=== PATIENT | male | born 1980 | race Caucasian/White ===

== ENCOUNTER 2017-10-04 13:14 | Emergency (ER) | payer BC, OTHER ==
[2017-10-04] MEDS ORDERED: CLINDAMYCIN 600 MG/D5W RTU 600 MG/50 ML RTUPB IV ONE (14:44)
[2017-10-04] MEDS ORDERED: DEXAMETHASONE SOD PHOS INJ 10 MG/1 ML VIAL IV ONE (14:44)
[2017-10-04] MEDS ORDERED: NORMAL SALINE 1000 ML 1,000 ML IV ONE (14:45)
[2017-10-04] MEDS ORDERED: KETOROLAC TROMETHAMINE INJ/PF 30 MG/1 ML SDV IV ONE (15:57)
[2017-10-04 16:00] LABS: HEMATOCRIT 42.8 % (37.9-51.0); HEMOGLOBIN 14.5 g/dL (13.5-17.0); HGB HCT DIFFERENCE 0.7; MEAN CORPUSCULAR HEMOGLOBIN 30.3 pg (27.0-33.4); MEAN CORPUSCULAR HGB CONC 33.8 g/dL (32.0-36.0); MEAN CORPUSCULAR VOLUME 90 fl (80-97); RED BLOOD COUNT 4.76 10^6/uL (4.35-5.55); RED CELL DISTRIBUTION WIDTH 13.2 % (11.5-14.0); WHITE BLOOD COUNT 13.6 10^3/uL (4.0-10.5)
--- NOTE | 2017-10-04 16:15 | RADIOLOGY REPORT (SQ) ---
EXAM DESCRIPTION: CT SOFT TISSUE NECK WITH COMPLETED DATE/TIME: 10/04/2017 3:44 pm REASON FOR STUDY: Fever swelling to the throat sore throat COMPARISON: None. TECHNIQUE: Post IV contrasted scanning from skull base through lung apices with review of bone, soft tissue and lung windows. Reconstructed coronal and sagittal MPR images reviewed. All images stored on PACS. All CT scanners at this facility use dose modulation, iterative reconstruction, and/or weight based d osing when appropriate to reduce radiation dose to as low as reasonably achievable (ALARA). [facility]: Dose Right [facility]: CareDose [facility]: Dose Right [facility]: Teradose 4D [facility]: Hard 8 Games CONTRAST TYPE AND DOSE: contrast/concentration: Isovue 370.00 mg/ml; Total Contrast Delivered: 75.0 ml; Total Saline Delivered: 55.0 ml RENAL FUNCTION: None required. The patient is less than 50 years old. RADIATION DOSE: CT Rad equipment meets quality standard of care and radiation dose reduction techniq ues were employed. CTDIvol: 14.2 mGy. DLP: 495 mGy-cm. . LIMITATIONS: Study is limited due to artifact related to dental hardware. FINDINGS: SKULL BASE: Intact. MAJOR SALIVARY GLANDS: No solid or cystic masses. No inflammatory changes. LYMPHADENOPATHY: No adenopathy. MUCOSAL MASSES OR ASYMMETRY: There is soft tissue asymmetry on the left extending inferiorly from the tonsillar region and oropharynx inferiorly into the supraglottic region with heterogeneous enhanceme nt and compression of the perform sinus on the left. This presumably is related to an infectious or inflammatory process. The possibility of an underlying mass cannot be completely excluded. LARYNX/CORDS: There does not appear to be involvement of the vocal cords. VASCULAR STRUCTURES: The major vessels are patent. LUNG APICES: Clear. BONES: Intact. THYROID: Normal size. No masses. PARANASAL SINUSES: Clear. OTHER: No other significant finding. IMPRESSION: Soft tissue asymmetry on the left as noted above extending inferiorly from the tonsillar region and oropharynx inferiorly into the supraglottic region with heterogeneous enhancement magui tabatha of the perform sinus on the left. This presumably is related to an infectious or inflammatory p rocess. The possibility of an underlying mass cannot be completely excluded. Clinical correlation i s recommended. Other findings as noted above TECHNICAL DOCUMENTATION: JOB ID: [id number] Quality ID # [id number]: Final reports with documentation of one or more dose reduction techniques (e.g., Au tomated exposure control, adjustment of the mA and/or kV according to patient size, use of iterative reconstruction technique) 2010 [employer]- All Rights Reserved
[2017-10-04 16:23] LABS: ANION GAP 14 (5-19); BLOOD UREA NITROGEN 11 mg/dL (7-20); CALCIUM 9.6 mg/dL (8.4-10.2); CARBON DIOXIDE 28 mmol/L (22-30); CHLORIDE 97 mmol/L (98-107); CREATININE RESULT 1.12 mg/dL (0.52-1.25); GLUCOSE 108 mg/dL (75-110); POTASSIUM 3.4 mmol/L (3.6-5.0); SODIUM 138.9 mmol/L (137-145)
[2017-10-04 16:37] LABS: BASOPHILS % (MANUAL) 0 % (0-2); EOSINOPHILS % (MANUAL) 0 % (0-6); LYMPHOCYTES % (MANUAL) 3 % (13-45); TOTAL CELLS COUNTED 100
[2017-10-04 16:39] LABS: SCHISTOCYTES SLIGHT
--- NOTE | 2017-10-04 17:21 | ER Document Report ---
ED General - General Chief Complaint: Fever Stated Complaint: POSSIBLE BUG BITE Time Seen by Provider: 10/04/17 14:30 Mode of Arrival: Ambulatory Information source: Patient Notes: 37-year-old male presents to ED for complaint of fever painful ulcer under the chin sore throat runny nose congestion that started yesterday he said that he did not notice the pain under his chin until this morning. States he went to her primary care doctor and they sent him to the emergency room. TRAVEL OUTSIDE OF THE [place] IN LAST 30 DAYS: No - HPI Onset: Yesterday Onset/Duration: Gradual Quality of pain: Pressure Severity: Severe Pain Level: 2 Associated symptoms: Body/muscle aches, Chills, Nonproductive cough, Fever, Rhinnorhea, Sinus pain/drainage, Sore throat, Other - Small sore area under the chin with swollen firm under the neck. 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 Family History: None Patient has suicidal ideation: No Patient has homicidal ideation: No - Past Medical History Cardiac Medical History: Reports: None Pulmonary Medical History: Reports: None EENT Medical History: Reports: None Neurological Medical History: Reports: None Endocrine Medical History: Reports: None Renal/ Medical History: Reports: None Malignancy Medical History: Reports None GI Medical History: Reports: None Skin Medical History: Reports Other - Redness swelling tenderness under the chin Psychiatric Medical History: Reports: None - Redness swelling tenderness to neck Traumatic Medical History: Reports: None Infectious Medical History: Reports: None - Immunizations Immunizations up to date: Yes Review of Systems - Review of Systems Constitutional: Fever, Recent illness EENT: Other - Red painful swollen area under the chin with a small sore with possible eschar tissue Cardiovascular: No symptoms reported Respiratory: No symptoms reported Gastrointestinal: No symptoms reported Genitourinary: No symptoms reported Male Genitourinary: No symptoms reported Musculoskeletal: No symptoms reported Skin: No symptoms reported Hematologic/Lymphatic: No symptoms reported Neurological/Psychological: No symptoms reported -: Yes All other systems reviewed and negative Physical Exam - Vital signs Vitals: Temp Pulse Resp BP Pulse Ox 101.7 F H 124 H 14 115/82 98 10/04/17 13:24 10/04/17 13:24 10/04/17 13:24 10/04/17 13:24 10/04/17 13:24 Interpretation: Normal - General General appearance: Appears well, Alert - HEENT Head: Normocephalic, Atraumatic Eyes: Normal Pupils: PERRL Ears: Normal External canal: Normal Tympanic membrane: Normal Sinus: Normal Nasal: Purulent discharge Mouth/Lips: Normal Mucous membranes: Normal Pharynx: Erythema, Post nasal drainage, Tonsillar hypertrophy Neck: Anterior cervical chain, Other - Swollen red area under the chin with a small ulcerated area to the left side under the chin. - Respiratory Respiratory status: No respiratory distress Chest status: Nontender Breath sounds: Normal Chest palpation: Normal - Cardiovascular Rhythm: Regular Heart sounds: Normal auscultation Murmur: No - Abdominal Inspection: Normal Distension: No distension Bowel sounds: Normal Tenderness: Nontender Organomegaly: No organomegaly - Back Back: Normal, Nontender - Extremities General upper extremity: Normal inspection, Nontender, Normal color, Normal ROM , Normal temperature General lower extremity: Normal inspection, Nontender, Normal color, Normal ROM , Normal temperature, Normal weight bearing. No: Derian's sign - Neurological Neuro grossly intact: Yes Cognition: Normal Orientation: AAOx4 Platter Coma Scale Eye Opening: Spontaneous Platter Coma Scale Verbal: Oriented Platter Coma Scale Motor: Obeys Commands Platter Coma Scale Total: 15 Speech: Normal Motor strength normal: LUE, RUE, LLE, RLE Sensory: Normal - Psychological Associated symptoms: Normal affect, Normal mood - Skin Skin Temperature: Warm Skin Moisture: Dry Skin Color: Normal Course - Re-evaluation Re-evalutation: 10/04/17 17:[address] Juan for the CT reading and lab results. He recommended that the roof be removed from the eschar looking scab. Roof was removed no drainage underneath. Patient was treated with clindamycin Decadron and Toradol in the emergency room as well as IV fluids and discharged home on clindamycin. Patient to follow-up with his primary doctor. - Vital Signs Vital signs: Temp Pulse Resp BP Pulse Ox 98.3 F 98 16 119/61 96 10/04/17 17:24 10/04/17 17:24 10/04/17 17:24 10/04/17 17:24 10/04/17 17:24 - Laboratory Result Diagrams: 10/04/17 15:10 10/04/17 15:10 Laboratory results interpreted by me: 10/04/17 10/04/17 15:10 15:10 WBC 13.6 H Seg Neuts % (Manual) 93 H Lymphocytes % (Manual) 3 L Abs Neuts (Manual) 12.6 H Abs Lymphs (Manual) 0.4 L Potassium 3.4 L Chloride 97 L - Diagnostic Test Radiology reviewed: Image reviewed, Reports reviewed Procedures - Incision and Drainage Left under the chin Time completed: 17:40 Type: Simple Anesthetic type: 1% Lidocaine mL's of anesthetic: 4 Blade size: 11, Other I&D procedure: Shurclens applied, Sterile dressing applied Incision Method: Incision made with needle - And scissors Amount/type of drainage: Very minimal drainage after the eschar looking area was removed. Notes: 10/04/17 17:41 Area cleaned well with Shur-Clens saline bacitracin then saline to be sure that the area was well cleaned. Bacitracin applied to the area with sterile dressing patient be discharged home with clindamycin and to follow-up with his primary doctor Discharge - Discharge Clinical Impression: Cellulitis neck/under chin left, Sore throat Upper respiratory infection Qualifiers: URI type: unspecified URI Qualified Code(s): J06.9 - Acute upper respiratory infection, unspecified Instructions: Family Physicians / Practices Additional Instructions: CELLULITIS: You have an infection of your skin and underlying soft tissues called cellulitis. This is due to bacteria, which can enter through any break in the skin, or even through an irritated hair follicle. Untreated, cellulitis will usually worsen. Antibiotics are required. Usually, warm packs or warm soaks, and elevation of the infected area are recommended. You should start getting better within 24 to 36 hours. Most infections respond quickly to the right medication. Follow-up care is important, however, to check for abscess (boil) formation, unsuspected foreign body, or resistant infection. If you develop fever, chills, or if the area of infection is becoming rapidly more swollen or painful, call the doctor at once. MRSA CELLULITIS: You have an infection of your skin and underlying soft tissues called cellulitis. This is due to bacteria, which can enter through any break in the skin, or even through an irritated hair follicle. Untreated, cellulitis will usually worsen and may form an abscess which requires draining. Although many bacterial organisms can cause cellulitis and abscess formations, the most likely bacteria is Methicillin-Resistant Staph Aureus, or MRSA for short. Antibiotics are required. Usually, warm packs or warm soaks, and elevation of the infected area are recommended. You should start getting better within 24 to 36 hours. Most infections respond quickly to the right medication. Follow-up care is important, however, to check for abscess (boil) formation, unsuspected foreign body, or resistant infection. If you develop fever, chills, or if the area of infection is becoming rapidly more swollen or painful, call the doctor at once. SOAP CLEANSING: Gently wash the wound daily using a mild soap (like Ivory, Phisoderm, Neutrogena). Use warm water, rubbing gently until all debris, ooze, and crusting have been washed from the wound. Allow to dry briefly (about 10 minutes) after cleaning. Repeat this cleansing at least three times a day for the first two days and then once or twice a day. ANTIBIOTIC OINTMENT PROTECTION: Your wounds are such that dressing them is not practical or optional. After cleansing, you should apply a thin coating of antibiotic ointment ( Bacitracin, not Neosporin) to the wounds at least three times daily. This lessens infection risk, and may decrease the amount of scarring. Use a q-tip or dull butter knife, not your finger, to apply this ointment. Any debris or ooze which builds up in the ointment should be gently rubbed off with a sterile gauze pad. Harder crusting may need to be gently scrubbed off with a clean wash cloth with soap and warm water, perhaps applying a warm, wet wash cloth to the wound for ten minutes first. Development of redness, severe itching, or blistering may mean allergy to the ointment. See the doctor. CLINDAMYCIN: You have been given a prescription for the antibiotic clindamycin. It is often prescribed for infections in the mouth, such as dental infections or abscesses, and for skin infections due to MRSA. It's important that you take all the medication, unless instructed otherwise by your physician. Failure to complete the entire course can result in relapse of your condition. Common side effects of antibiotics include nausea, intestinal cramping, or diarrhea. Women may develop vaginal yeast infections, and babies can get yeast (thrush) in the mouth following the use of antibiotics. Contact your physician if you develop significant side effects from this medication. Allergy to this antibiotic can result in hives, wheezing, faintness, or itching. If symptoms of allergy occur, stop the medication and call the doctor. Acetaminophen Acetaminophen may be taken for pain relief or fever control. It's much safer than aspirin, offering a wider range of "safe" dosages. It is safe during . Some brand names are Tylenol, Panadol, Datril, Anacin 3, Tempra, and Liquiprin. Acetaminophen can be repeated every four hours. The following are maximum recommended dosages: WEIGHT Dose Drops Elixir Chewable( 80mg) (LBS.) drprs=droppers tsp=teaspoon 6 40 mg .4 ml (1/2) 6-11 80 mg .8 ml (full) 1/2 tsp 1 tab 12-16 120 mg 1 1/2 drprs 3/4 tsp 1 1/2 tabs 17-23 160 mg 2 drprs 1 tsp 2 tabs 24-30 240 mg 3 drprs 1 1/2 tsp 3 tabs 30-35 320 mg 2 tsp 4 tabs 36-41 360 mg 2 1/4 tsp 4 1 /2 tabs 42-47 400 mg 2 1/2 tsp 5 tabs 48-53 480 mg 3 tsp 6 tabs 54-59 520 mg 3 1/4 tsp 6 1 /2 tabs 60-64 560 mg 3 1/2 tsp 7 tabs 65-70 600 mg 3 3/4 tsp 7 1 /2 tabs 71-76 640 mg 4 tsp 8 tabs 77-82 720 mg 4 1/2 tsp 9 tabs 83-88 800 mg 5 tsp 10 tabs >89 pounds or adults 650 mg to 900 mg Acetaminophen can be repeated every four hours. Maximum daily dose not to exceed 4000 mg. These maximum recommended dosages are slightly higher than the dosages written on the product container, but these dosages are very safe and well below the toxic dosage for acetaminophen. Epsom Salt Soaks Soak the wound area in a container of warm epsom salt water. If you can't get the wound area into a bucket or siegel, use a folded towel soaked in the epsom salt solution and apply to the area. Use clean hot tap water (about the temperature of a very warm bath), mixing in about one (1) teaspoon for every pint of water. Two gallon --> 16 teaspoons Epsom Salts One gallon --> 8 teaspoons Epsom Salts Two quarts --> 4 teaspoons Epsom Salts One quart --> 2 teaspoons Epsom Salts Soak the wound for about 20 minutes while gently moving it around in the water. Repeat this four (4) times a day. FOLLOW-UP CARE: If you have been referred to a physician for follow-up care, call the physician s office for an appointment as you were instructed or within the next two days. If you experience worsening or a significant change in your symptoms, notify the physician immediately or return to the Emergency Department at any time for re-evaluation. Prescriptions: Clindamycin HCl 300 mg PO Q6 #40 capsule Forms: Return to Work
[2017-10-04 17:24] VITALS: BP 119/61
== END 2017-10-04 18:17 | disposition home or self-care (01) ==
LOC: ER 13:14
PROC: 0H94XZZ Drainage of Neck Skin, External Approach (ICD-10-PCS; principal; 2017-10-04)
DX: L03.221 Cellulitis of neck (principal); J02.9 Acute pharyngitis, unspecified; J06.9 Acute upper respiratory infection, unspecified; R50.9 Fever, unspecified; M79.1 Myalgia
CPT/HCPCS: 99284; 96375; 96365; 36415; 87040; 87070; 87880; 85025; 87077; 80048; 83605; 70491; 10060; J1885; J7030; J1100

== ENCOUNTER 2019-10-28 10:36 | Inpatient (IN) | payer SELFPAY ==
--- NOTE | 2019-10-28 10:50 | ER Document Report ---
ED Medical Screen (RME) - General Chief Complaint: Abscess Stated Complaint: ABSCESS/BACK OF NECK Time Seen by Provider: 10/28/19 10:48 TRAVEL OUTSIDE OF THE [place] IN LAST 30 DAYS: No - HPI Notes: 10/28/19 10:48 Patient is a 39-year-old male with no significant past medical history who presents complaining of a large abscess to the back of his head for the past several days. No history of MRSA. No fever. I have treated and performed a rapid initial assessment of this patient. A comprehensive ED assessment and evaluation of the patient, analysis of test results and completion of medical decision making process will be conducted by additional ED providers. PHYSICAL EXAMINATION: GENERAL: Well-appearing, well-nourished and in no acute distress. A&Ox4. Answers questions appropriately. Skin/head: There is a large approximately 9 cm x 6 cm indurated area with scant purulence noted to the back of the scalp. There is surrounding erythema associated. - Related Data Allergies/Adverse Reactions: No Known Allergies Allergy (Unverified 10/04/17 13:20) Past Medical History Renal/ Medical History: Denies: Hx Peritoneal Dialysis - Immunizations Immunizations up to date: Yes Physical Exam - Vital signs Vitals: Temp Pulse Resp BP Pulse Ox 98.6 F 108 H 16 155/84 H 98 10/28/19 10:45 10/28/19 10:45 10/28/19 10:45 10/28/19 10:45 10/28/19 10:45 Course - Vital Signs Vital signs: Temp Pulse Resp BP Pulse Ox 98.6 F 108 H 16 155/84 H 98 10/28/19 10:45 10/28/19 10:45 10/28/19 10:45 10/28/19 10:45 10/28/19 10:45
[2019-10-28] MEDS ORDERED: KETOROLAC TROMETHAMINE INJ/PF 30 MG/1 ML SDV IV ONE (11:38)
[2019-10-28] MEDS ORDERED: CLINDAMYCIN 600 MG/D5W RTU 600 MG/50 ML RTUPB IV ONE (11:39)
[2019-10-28 12:21] LABS: ABSOLUTE BASOPHILS # (AUTO) 0.1 10^3/uL (0.0-0.2); ABSOLUTE EOSINOPHILS # (AUTO) 0.1 10^3/uL (0.0-0.6); ABSOLUTE LYMPHOCYTES (AUTO) 1.6 10^3/uL (0.5-4.7); ABSOLUTE MONOCYTES (AUTO) 1.1 10^3/uL (0.1-1.4); ABSOLUTE NEUT (AUTO) 11.8 10^3/uL (1.7-8.2); BASOPHILS % (AUTO) 0.6 % (0-2); EOSINOPHILS % (AUTO) 0.5 % (0-6); HEMATOCRIT 42.9 % (37.9-51.0); HEMOGLOBIN 14.6 g/dL (13.5-17.0); LYMPHOCYTES % (AUTO) 10.8 % (13-45); MEAN CORPUSCULAR VOLUME 91 fl (80-97); MONOCYTES % (AUTO) 7.8 % (3-13); PLATELET COUNT 273 10^3/uL (150-450); RED BLOOD COUNT 4.71 10^6/uL (4.35-5.55); RED CELL DISTRIBUTION WIDTH 13.6 % (11.5-14.0); SEGMENTED NEUTROPHILS % (AUTO) 80.3 % (42-78); TOTAL CELLS COUNTED % (AUTO) 100 %; WHITE BLOOD COUNT 14.7 10^3/uL (4.0-10.5)
[2019-10-28 12:41] LABS: ALKALINE PHOSPHATASE 94 U/L (38-126); ANION GAP 11 (5-19); ASPARTATE AMINO TRANSFERASE 31 U/L (17-59); BILIRUBIN,DIRECT 0.2 mg/dL (0.0-0.4); BILIRUBIN,TOTAL 0.7 mg/dL (0.2-1.3); BLOOD UREA NITROGEN 8 mg/dL (7-20); CALCIUM 9.4 mg/dL (8.4-10.2); CARBON DIOXIDE 28 mmol/L (22-30); CHLORIDE 101 mmol/L (98-107); GLUCOSE 89 mg/dL (75-110); POTASSIUM 4.1 mmol/L (3.6-5.0); TOTAL PROTEIN 7.5 g/dL (6.3-8.2)
--- NOTE | 2019-10-28 13:04 | ER Document Report ---
ED General - General Chief Complaint: Abscess Stated Complaint: ABSCESS/BACK OF NECK Time Seen by Provider: 10/28/19 10:48 TRAVEL OUTSIDE OF THE [place] IN LAST 30 DAYS: No - HPI Notes: Patient is a 39-year-old male who presents emergency department for evaluation of redness and drainage from the back of his neck. He states that he had a haircut about a week ago. He noticed increased pain and redness to the area. He then wore a collar and short 1 day and developed drainage. He states his been trying to attend to the wound with tea tree oil, rubbing alcohol, hydrogen peroxide. He denies any fevers or chills. No nausea or vomiting. - Related Data Allergies/Adverse Reactions: No Known Allergies Allergy (Unverified 10/04/17 13:20) Home Medications: None Past Medical History - General Information source: Patient - Social History Smoking Status: Never Smoker Frequency of alcohol use: None Drug Abuse: None Family History: None Patient has suicidal ideation: No Patient has homicidal ideation: No - Medical History Medical History: Negative Renal/ Medical History: Denies: Hx Peritoneal Dialysis - Immunizations Immunizations up to date: Yes Review of Systems - Review of Systems Constitutional: No symptoms reported EENT: No symptoms reported Cardiovascular: No symptoms reported Respiratory: No symptoms reported Gastrointestinal: No symptoms reported Genitourinary: No symptoms reported Musculoskeletal: No symptoms reported Skin: See HPI Neurological/Psychological: No symptoms reported Physical Exam - Vital signs Vitals: Temp Pulse Resp BP Pulse Ox 98.6 F 108 H 16 155/84 H 98 10/28/19 10:45 10/28/19 10:45 10/28/19 10:45 10/28/19 10:45 10/28/19 10:45 - Notes Notes: Vital signs reviewed, please refer to chart. Head is normocephalic, atraumatic. Pupils equal round, reactive to light. Heart is regular rate and rhythm. Lungs are clear to auscultation bilaterally. Abdomen is soft, nontender, normoactive bowel sounds throughout. Extremities without cyanosis, clubbing. Posterior calves are nontender. Peripheral pulses are equal. patient is awake, alert, neurological exam is nonfocal. Examination of the posterior neck is a 9 x 6 cm significant induration and erythema. Centrally he has had some skin breakdown with some purulence noted. The entire area is raised. No nuchal rigidity. Patient is awake, alert, oriented x3. Cranial nerves II - XII are grossly intact without focal neurological deficits. Strength is plus 5 out of 5 bilateral upper and lower extremities. Sensation is intact. Reflexes symmetrical. Intact [id number], rapid alternating movements, [id number]. Course - Re-evaluation Re-evalutation: 10/28/19 13:04 Patient presents emergency department for evaluation. He had laboratory investigations obtained, was given IV clindamycin. Cultures were obtained. He does have a 14,000 white count. Given the location and the size of this area, I will consult surgery. Awaiting their input at this time. 10/28/19 14:56 Dr. Castro came down and evaluated the patient. He agrees that based on the location and the depth of the wound that surgical exploration and debridement is appropriate. The patient will be taken to the OR. - Vital Signs Vital signs: Temp Pulse Resp BP Pulse Ox 98.3 F 102 H 18 123/73 100 10/28/19 14:43 10/28/19 14:43 10/28/19 14:43 10/28/19 14:43 10/28/19 14:43 - Laboratory Result Diagrams: 10/28/19 12:00 10/28/19 12:00 Laboratory results interpreted by me: 10/28/19 12:00 WBC 14.7 H Lymph % (Auto) 10.8 L Absolute Neuts (auto) 11.8 H Seg Neutrophils % 80.3 H Discharge - Discharge Clinical Impression: Neck abscess Condition: Stable Disposition: ADMITTED INPATIENT Admitting Provider: Surgicalist - Dr. Castro Unit Admitted: OR
[2019-10-28] MEDS ORDERED: MIDAZOLAM 2 MG/2 ML INJ ONE (15:31)
[2019-10-28] MEDS ORDERED: FENTANYL CITRATE INJ/PF 100 MCG/2 ML AMPUL ONE (15:31)
[2019-10-28] MEDS ORDERED: PROPOFOL INJ 200 MG/20 ML VIAL IV ONE (15:32)
[2019-10-28] MEDS ORDERED: ONDANSETRON HCL INJ/PF 4 MG/2 ML SDV ONE (15:32)
[2019-10-28] MEDS ORDERED: BUPIVACAINE HCL 0.25 % INJ/PF (2.5 MG/1 ML) 30 ML VIAL ONE (15:33)
[2019-10-28] MEDS ORDERED: LIDOCAINE 1%/EPINEPHRINE INJ 20 ML VIAL ONE (16:05)
[2019-10-28] MEDS ORDERED: PROMETHAZINE HCL INJ 25 MG/1 ML VIAL IV PRN (16:14)
[2019-10-28] MEDS ORDERED: MEPERIDINE HCL/PF INJ 25 MG/1 ML DISP.SYRIN IV PRN (16:14)
[2019-10-28] MEDS ORDERED: FENTANYL CITRATE INJ/PF 100 MCG/2 ML AMPUL IV PRN ×3 (16:14)
[2019-10-28] MEDS ORDERED: DIPHENHYDRAMINE HCL 50 MG/ML VIAL IV PRN (16:14)
[2019-10-28] MEDS ORDERED: MORPHINE SULFATE 10 MG/ML INJ IV PRN (16:14)
[2019-10-28] MEDS ORDERED: ONDANSETRON HCL INJ/PF 4 MG/2 ML SDV IV PRN (16:42)
--- NOTE | 2019-10-28 16:50 | Operative Report ---
Nonrecallable Operative Report DATE OF SURGERY: 10/28/19 PREOPERATIVE DIAGNOSIS: posterior neck abscess POSTOPERATIVE DIAGNOSIS: Posterior neck abscess OPERATION: Incision drainage debridement of posterior neck abscess SURGEON: LAUREN GALINDO ANESTHESIA: LMAC TISSUE REMOVED OR ALTERED: Skin posterior neck COMPLICATIONS: None ESTIMATED BLOOD LOSS: 50 cc INTRAOPERATIVE FINDINGS: See dictation PROCEDURE: Patient was brought to the operating awake alert stable condition placed in the operative gurney placed in a left lateral decubitus position he was given IV sedation per anesthesia. The posterior neck was prepped and draped. The patient had a large posterior neck abscess in the nape of the neck that was approximately 7 cm long by 4 cm wide after appropriate timeout site verification the procedure commenceA elliptical incision was planned around the abscess first the skin was anesthetized with 1% lidocaine with epinephrine and then using a 15 blade a elliptical incision was made around the abscess through this scalp skin down to the subcutaneous tissue there was a large necrotic area of fatty tissue and subcutaneous tissue underneath the skin was excised down to the muscle of the splenius capitis with the Bovie cautery. A segment of skin approximately 7 cm long by 4 cm wide was excised. I excised the necrotic subcutaneous tissue back to normal bleeding tissue. The wound was then copiously irrigated normal saline and packed with a Betadine soaked sponge which completed the procedure estimated blood loss was 50 cc sponge and needle counts were correct x2 the patient was then transferred recovery in stable condition
[2019-10-28] MEDS ORDERED: VANCOMYCIN HCL 0 MG in DEXTROSE 5%-WATER 250 ML IV NR (17:00)
[2019-10-28] MEDS ORDERED: INFLUENZA QUAD (6MOS+) 2019-20 VAC 0.5 ML SYR IM ONE (17:15)
[2019-10-28] MEDS ORDERED: VANCOMYCIN HCL INJ 1000 MG VIAL IV PRN (17:22)
[2019-10-28] MEDS: POTASSI CL 20 MEQ/D5-1/2NS 1L 1,000 ML IV PRN (17:45)
[2019-10-28] MEDS ORDERED: VANCOMYCIN HCL INJ 1000 MG VIAL ONE (17:56)
[2019-10-28] MEDS: VANCOMYCIN HCL 1,500 MG in DEXTROSE 5%-WATER 250 ML IV SCH (18:26)
[2019-10-28] MEDS: FAMOTIDINE INJ/PF 20 MG/2 ML SDV IV SCH (22:39)
[2019-10-29] MEDS: POTASSI CL 20 MEQ/D5-1/2NS 1L 1,000 ML IV PRN ×2 (05:28→17:44)
[2019-10-29] MEDS: VANCOMYCIN HCL 1,500 MG in DEXTROSE 5%-WATER 250 ML IV SCH (05:29)
[2019-10-29 05:50] LABS: ABSOLUTE EOSINOPHILS # (AUTO) 0.2 10^3/uL (0.0-0.6); ABSOLUTE LYMPHOCYTES (AUTO) 2.7 10^3/uL (0.5-4.7); ABSOLUTE MONOCYTES (AUTO) 0.9 10^3/uL (0.1-1.4); ABSOLUTE NEUT (AUTO) 6.7 10^3/uL (1.7-8.2); BASOPHILS % (AUTO) 0.3 % (0-2); EOSINOPHILS % (AUTO) 1.7 % (0-6); HEMATOCRIT 40.1 % (37.9-51.0); HEMOGLOBIN 13.5 g/dL (13.5-17.0); LYMPHOCYTES % (AUTO) 25.3 % (13-45); MEAN CORPUSCULAR HEMOGLOBIN 30.8 pg (27.0-33.4); MEAN CORPUSCULAR HGB CONC 33.6 g/dL (32.0-36.0); MEAN CORPUSCULAR VOLUME 92 fl (80-97); MONOCYTES % (AUTO) 8.4 % (3-13); PLATELET COUNT 272 10^3/uL (150-450); RED BLOOD COUNT 4.38 10^6/uL (4.35-5.55); RED CELL DISTRIBUTION WIDTH 13.7 % (11.5-14.0); SEGMENTED NEUTROPHILS % (AUTO) 64.3 % (42-78); TOTAL CELLS COUNTED % (AUTO) 100 %; WHITE BLOOD COUNT 10.5 10^3/uL (4.0-10.5)
[2019-10-29 06:14] LABS: ANION GAP 9 (5-19); BLOOD UREA NITROGEN 9 mg/dL (7-20); CALCIUM 8.5 mg/dL (8.4-10.2); CARBON DIOXIDE 30 mmol/L (22-30); CHLORIDE 101 mmol/L (98-107); GLUCOSE 127 mg/dL (75-110); POTASSIUM 3.8 mmol/L (3.6-5.0)
--- NOTE | 2019-10-29 09:10 | PDOC PROGRESS REPORT ---
Subjective Progress Note for:: 10/29/19 Subjective:: feels better Reason For Visit: ABSCESS OF NECK Physical Exam Vital Signs: Temp Pulse Resp BP Pulse Ox 98.0 F 99 16 130/66 H 100 10/29/19 07:19 10/29/19 07:19 10/29/19 07:19 10/29/19 07:19 10/29/19 07:19 Intake & Output 10/28/19 10/29/19 10/30/19 06:59 06:59 06:59 Intake Total 3880 Output Total 40 Balance 3840 Weight 93.1 kg General appearance: PRESENT: no acute distress Head exam: PRESENT: normocephalic, other - posterior neck wound with decreased celluliltis no pus, dry Eye exam: PRESENT: EOMI Ear exam: PRESENT: normal external ear exam Mouth exam: PRESENT: moist Neck exam: PRESENT: full ROM Respiratory exam: PRESENT: clear to auscultation steve Cardiovascular exam: PRESENT: RRR Pulses: PRESENT: normal radial pulses, normal femoral pulses Vascular exam: PRESENT: normal capillary refill GI/Abdominal exam: PRESENT: soft Rectal exam: PRESENT: deferred Extremities exam: PRESENT: full ROM Neurological exam: PRESENT: alert, awake, oriented to person, oriented to place Psychiatric exam: PRESENT: appropriate affect Skin exam: PRESENT: dry Results Laboratory Results: 10/29/19 05:14 10/29/19 05:14 10/28/19 10/28/19 10/29/19 12:00 12:00 05:14 WBC 14.7 H 10.5 RBC 4.71 4.38 Hgb 14.6 13.5 Hct 42.9 40.1 MCV 91 92 MCH 31.0 30.8 MCHC 34.0 33.6 RDW 13.6 13.7 Plt Count 273 272 Seg Neutrophils % 80.3 H 64.3 Sodium 139.6 Potassium 4.1 Chloride 101 Carbon Dioxide 28 Anion Gap 11 BUN 8 Creatinine 1.03 Est GFR ( Amer) > 60 Glucose 89 Calcium 9.4 Total Bilirubin 0.7 AST 31 Alkaline Phosphatase 94 Total Protein 7.5 Albumin 4.0 10/29/19 05:14 WBC RBC Hgb Hct MCV MCH MCHC RDW Plt Count Seg Neutrophils % Sodium 139.6 Potassium 3.8 Chloride 101 Carbon Dioxide 30 Anion Gap 9 BUN 9 Creatinine 1.08 Est GFR ( Amer) > 60 Glucose 127 H Calcium 8.5 Total Bilirubin AST Alkaline Phosphatase Total Protein Albumin Assessment & Plan - Time Time Spent with patient: 25-34 minutes - Plan Summary Plan Summary: s/p incision drainage of posterior neck abscess doing better today will start wet to dry dressing changes awaiting wound cults cont iv vancol
[2019-10-29] MEDS: FAMOTIDINE INJ/PF 20 MG/2 ML SDV IV SCH ×2 (09:33→22:08)
[2019-10-29] MEDS: MORPHINE SULFATE 10 MG/ML INJ IV PRN (13:58)
[2019-10-29] MEDS: VANCOMYCIN HCL 1,000 MG in DEXTROSE 5%-WATER 250 ML IV SCH ×2 (14:29→22:03)
[2019-10-30] MEDS: POTASSI CL 20 MEQ/D5-1/2NS 1L 1,000 ML IV PRN ×2 (05:29→17:09)
[2019-10-30] MEDS: VANCOMYCIN HCL 1,000 MG in DEXTROSE 5%-WATER 250 ML IV SCH ×3 (05:29→22:30)
[2019-10-30] MEDS: MORPHINE SULFATE 10 MG/ML INJ IV PRN (09:39)
[2019-10-30] MEDS: FAMOTIDINE INJ/PF 20 MG/2 ML SDV IV SCH ×2 (09:40→23:18)
--- NOTE | 2019-10-30 11:53 | PDOC PROGRESS REPORT ---
Subjective Progress Note for:: 10/30/19 Subjective:: Patient states he feels better, able to move his neck; no fever. Tolerating a diet Reason For Visit: ABSCESS OF NECK Physical Exam Vital Signs: Temp Pulse Resp BP Pulse Ox 97.9 F 91 18 119/71 97 10/29/19 23:50 10/29/19 23:50 10/29/19 23:50 10/29/19 23:50 10/29/19 23:50 Intake & Output 10/29/19 10/30/19 10/31/19 06:59 06:59 06:59 Intake Total 3880 4340 Output Total 40 Balance 3840 4340 Weight 93.1 kg 87.1 kg General appearance: PRESENT: no acute distress Neck exam: PRESENT: other - Seems removed; wound cavity clean, no foul smell or drainage. Surrounding skin and subcutaneous tissue semi-firm, but not hostile Results Laboratory Results: 10/29/19 05:14 10/29/19 05:14 10/28/19 16:08 Neck - Abscess Gram Stain - Final 10/28/19 16:08 Neck - Abscess Wound Culture - Final Mrsa (Meth Resis Staph Aureus) No Anaerobic Organisms 10/28/19 11:21 Scalp Gram Stain - Final 10/28/19 11:21 Scalp Wound Culture - Final Mrsa (Meth Resis Staph Aureus) No Anaerobic Organisms Assessment & Plan - Diagnosis (1) Neck abscess Is this a current diagnosis for this admission?: Yes Plan: Impression: Postoperative day 2 status post neck debridement with sufficient septic Control. Patient growing MRSA. Currently on vancomycin. Recommendations: 1. We will start patient on dressing changes, shower 2. Continue intravenous antibiotics today, anticipate discharge home on p.o. antibiotics tomorrow 3. Discussed the above with patient, and the need for him and/or a friend to assist with dressing changes on outpatient basis. - Time Time Spent with patient: 15-24 minutes Medications reviewed and adjusted accordingly: Yes Anticipated discharge: Home
[2019-10-30] MEDS ORDERED: ONDANSETRON HCL INJ/PF 4 MG/2 ML SDV IV PRN (14:00)
[2019-10-30 14:18] LABS: VANCOMYCIN,TROUGH 12.2 ug/mL (5.0-20.0)
[2019-10-31] MEDS: POTASSI CL 20 MEQ/D5-1/2NS 1L 1,000 ML IV PRN (04:17)
[2019-10-31] MEDS: VANCOMYCIN HCL 1,000 MG in DEXTROSE 5%-WATER 250 ML IV SCH ×2 (05:43→13:00)
[2019-10-31] MEDS: FAMOTIDINE INJ/PF 20 MG/2 ML SDV IV SCH (11:14)
--- NOTE | 2019-10-31 12:05 | PDOC DISCHARGE SUMMARY ---
General - Admit/Disc Date/PCP Admission Date/Primary Care Provider: 10/28/19 15:06 Discharge Date: 10/31/19 - Discharge Diagnosis Final Diagnosis: Posterior neck abscess, MRSA. - Assessment Summary: This is a 39-year-old male admitted with a large posterior neck abscess. Patient was taken the operating room for incision and drainage. A large amount of debridement was required. The patient was then sent to the floor in stable condition. Wet-to-dry dressing changes were initiated. The patient was maintained on intravenous vancomycin. The patient's cultures returned as MRSA. The patient's white count improved. He remained afebrile after surgery. Damp to dry dressing changes were initiated. By 10/31/2019, the patient was doing well and is medically fit for discharge. - Additional Information Resuscitation Status: Full Code Discharge Diet: As Tolerated Discharge Activity: Balance Activity w/Rest Referrals: [facility] [Provider Group] Home Medications: No Home Medications 10/29/19 Additional Information: Discharge home. Diet as tolerated. Activity: Nonstrenuous. Follow-up with [facility] in 5 to 7 days. Damp dressing changes twice daily. Bactrim DS, 2 tabs p.o. twice daily. [place] 10/325 mg p.o. every 6 hours PRN for pain. History of Present Illiness History of Present Illness: CHRISSY LANDIN is a 39 year old male Physical Exam Vital Signs: Temp Pulse Resp BP Pulse Ox 98.1 F 104 H 16 137/81 H 97 10/31/19 11:11 10/31/19 11:11 10/31/19 11:11 10/31/19 11:11 10/31/19 11:11 Intake & Output 10/30/19 10/31/19 11/01/19 06:59 06:59 06:59 Intake Total 4590 4990 250 Balance 4590 4990 250 Weight 87.1 kg 87.5 kg Results Laboratory Results: WBC 10.5 10^3/uL (4.0-10.5) 10/29/19 05:14 RBC 4.38 10^6/uL (4.35-5.55) 10/29/19 05:14 Hgb 13.5 g/dL (13.5-17.0) 10/29/19 05:14 Hct 40.1 % (37.9-51.0) 10/29/19 05:14 MCV 92 fl (80-97) 10/29/19 05:14 MCH 30.8 pg (27.0-33.4) 10/29/19 05:14 MCHC 33.6 g/dL (32.0-36.0) 10/29/19 05:14 RDW 13.7 % (11.5-14.0) 10/29/19 05:14 Plt Count 272 10^3/uL (150-450) 10/29/19 05:14 Lymph % (Auto) 25.3 % (13-45) 10/29/19 05:14 [place] % (Auto) 8.4 % (3-13) 10/29/19 05:14 Eos % (Auto) 1.7 % (0-6) 10/29/19 05:14 Baso % (Auto) 0.3 % (0-2) 10/29/19 05:14 Absolute Neuts (auto) 6.7 10^3/uL (1.7-8.2) 10/29/19 05:14 Absolute Lymphs (auto) 2.7 10^3/uL (0.5-4.7) 10/29/19 05:14 Absolute Monos (auto) 0.9 10^3/uL (0.1-1.4) 10/29/19 05:14 Absolute Eos (auto) 0.2 10^3/uL (0.0-0.6) 10/29/19 05:14 Absolute Basos (auto) 0.0 10^3/uL (0.0-0.2) 10/29/19 05:14 Seg Neutrophils % 64.3 % (42-78) 10/29/19 05:14 Sodium 139.6 mmol/L (137-145) 10/29/19 05:14 Potassium 3.8 mmol/L (3.6-5.0) 10/29/19 05:14 Chloride 101 mmol/L (98-107) 10/29/19 05:14 Carbon Dioxide 30 mmol/L (22-30) 10/29/19 05:14 Anion Gap 9 (5-19) 10/29/19 05:14 BUN 9 mg/dL (7-20) 10/29/19 05:14 Creatinine 1.17 mg/dL (0.52-1.25) 10/30/19 13:30 Est GFR ( Amer) > 60 (>60) 10/30/19 13:30 Est GFR (MDRD) Non-Af > 60 (>60) 10/30/19 13:30 Glucose 127 mg/dL (75-110) H 10/29/19 05:14 Calcium 8.5 mg/dL (8.4-10.2) 10/29/19 05:14 Total Bilirubin 0.7 mg/dL (0.2-1.3) 10/28/19 12:00 Direct Bilirubin 0.2 mg/dL (0.0-0.4) 10/28/19 12:00 Neonat Total Bilirubin Not Reportable 10/28/19 12:00 Neonat Direct Bilirubin Not Reportable 10/28/19 12:00 Neonat Indirect Bili Not Reportable 10/28/19 12:00 AST 31 U/L (17-59) 10/28/19 12:00 ALT 56 U/L (<50) 10/28/19 12:00 Alkaline Phosphatase 94 U/L (38-126) 10/28/19 12:00 Total Protein 7.5 g/dL (6.3-8.2) 10/28/19 12:00 Albumin 4.0 g/dL (3.5-5.0) 10/28/19 12:00 Time Trough Drawn 1330 10/30/19 13:30 Vancomycin Trough 12.2 ug/mL (5.0-20.0) 10/30/19 13:30
[2019-10-31 13:11] VITALS: BP 135/65
--- NOTE | 2019-11-02 07:39 | Progress Note ---
Provider Note Provider Note: Attending Provider: LAUREN GALINDO Date: 10/28/19 14:27 Initialization Date: 10/28/19 14:27 HISTORY AND PHYSICAL HISTORY AND PHYSICAL: 10/28/19 Attending physician:: JAMI CARUSO Provider Consulted: LAUREN GALINDO History of Present Illness History of Present Illness: CHRISSY LANDIN is a 39 year old male who presents emergency department for evaluation of redness and drainage from the back of his neck. He states that he had a haircut about a week ago. He noticed increased pain and redness to the area. He then wore a collar and short 1 day and developed drainage. He states his been trying to attend to the wound with tea tree oil, rubbing alcohol, hydrogen peroxide. He denies any fevers or chills. No nausea or vomiting. Past Surgical History Past Surgical History: Reports: Herniorrhaphy Social History Smoking Status: Never Smoker Family History Family History: None Parental Family History Reviewed: No Children Family History Reviewed: NA Sibling(s) Family History Reviewed.: NA Medication/Allergy Home Medications: Clindamycin HCl 300 mg PO Q6 #40 capsule 10/04/17 Allergies/Adverse Reactions: No Known Allergies Allergy (Unverified 10/04/17 13:20) Review of Systems Constitutional: PRESENT: as per HPI Eyes: ABSENT: as per HPI, visual disturbances, other Ears: ABSENT: as per HPI, hearing changes, other Nose, Mouth, and Throat: PRESENT: other - posterior neck pain Breasts: ABSENT: as per HPI, other Cardiovascular: ABSENT: as per HPI, chest pain, dyspnea on exertion, edema, orthropnea, palpitations, other Respiratory: ABSENT: as per HPI, cough, dyspnea, hemoptysis, sputum, other Gastrointestinal: ABSENT: as per HPI, abdominal pain, bloating, coffee ground emesis, constipation, diarrhea, dysphagia, heartburn, hematemesis, hematochezia, melena, nausea, vomiting, other Genitourinary: ABSENT: as per HPI, difficulty urinating, dysuria, hematuria, nocturia, other Musculoskeletal: ABSENT: as per HPI, back pain, deformity, joint swelling, muscle weakness, other Integumentary: ABSENT: as per HPI, diaphoresis, erythema, lesions, pruritus, rash, wounds, other Neurological: ABSENT: as per HPI, abnormal gait, abnormal movements, abnormal speech, confusion, convulsions, dizziness, focal weakness, frequent falls, lack of coordination, memory loss, numbness, paresthesias, restless legs, syncope, tingling, tremor(s), vertigo, weakness, other Psychiatric: ABSENT: as per HPI, anxiety, depression, hallucinations, homidical ideation, suicidal ideation, other Hematologic/Lymphatic: ABSENT: as per HPI, easy bleeding, easy bruising, lymphadenopathy, other Allergic/Immunologic: ABSENT: as per HPI, seasonal rhinorrhea, other Physical Exam Vital Signs: Temp Pulse Resp BP Pulse Ox 98.2 F 94 18 132/73 H 97 10/28/19 12:51 10/28/19 12:51 10/28/19 12:51 10/28/19 12:51 10/28/19 12:51 Intake & Output 10/27/19 10/28/19 10/29/19 06:59 06:59 06:59 Intake Total 50 Balance 50 Weight 88.6 kg General appearance: PRESENT: mild distress Head exam: PRESENT: other - posterior neck swelling and cellulitis iwth purulent drainage. approx 8cm transverse and 4cm wide Eye exam: PRESENT: EOMI Ear exam: PRESENT: normal external ear exam Mouth exam: PRESENT: moist Neck exam: PRESENT: full ROM Respiratory exam: PRESENT: clear to auscultation steve Cardiovascular exam: PRESENT: RRR Pulses: PRESENT: normal radial pulses, normal femoral pulses GI/Abdominal exam: PRESENT: soft Rectal exam: PRESENT: deferred Extremities exam: PRESENT: full ROM Musculoskeletal exam: PRESENT: full ROM Neurological exam: PRESENT: alert, awake, oriented to person, oriented to place Psychiatric exam: PRESENT: appropriate affect Skin exam: PRESENT: dry Results Laboratory Results: 10/28/19 12:00 [Image 0] 10/28/19 12:00 [Image 1] 10/28/19 10/28/19 12:00 12:00 WBC 14.7 H RBC 4.71 Hgb 14.6 Hct 42.9 MCV 91 MCH 31.0 MCHC 34.0 RDW 13.6 Plt Count 273 Seg Neutrophils % 80.3 H Sodium 139.6 Potassium 4.1 Chloride 101 Carbon Dioxide 28 Anion Gap 11 BUN 8 Creatinine 1.03 Est GFR ( Amer) > 60 Glucose 89 Calcium 9.4 Total Bilirubin 0.7 AST 31 Alkaline Phosphatase 94 Total Protein 7.5 Albumin 4.0 Assessment & Plan - Plan Summary Plan Summary: impression large posterior neck abscess with purulent drainage recommend incision and drainage under general anesthesia discussed risks and benifits iwth pt including needing repeat surgery numbness, infection, bleeding , scaring difficulty iwth neck extension after surgery, numbness, and muscle weakness he understands and agrees to proceed.
--- NOTE | 2019-11-03 11:24 | PDOC H&P ---
History of Present Illness Admission Date/PCP: 10/28/19 15:06 Patient complains of: neck pain. drainage History of Present Illness: pt has had a 2 wk hx of boil on back of his neck drainaing painful. Past Medical History Cardiac Medical History: Denies: None, Atrial Fibrillation, Congestive Heart Failure, Coronary Artery Disease, DVT, Myocardial Infarction, Hyperlipidema, Hypertension, Peripheral Vascular Disease, Pulmonary Embolism, Heart Murmur, Other Pulmonary Medical History: Denies: None, Asthma, Bronchitis, Chronic Obstructive Pulmonary Disease (COPD), Intubation, Pneumonia, Respiratory Failure, Sleep Apnea, Tuberculosis, Other EENT Medical History: Denies: None, Cataracts, Eyes, Ears, Nose, Throat, Other Neurological Medical History: Denies: None, Hemorrhagic CVA, Ischemic CVA, Migraine, Multiple Sclerosis, Seizures, Other Endocrine Medical History: Denies: None, Diabetes Mellitus Type 1, Diabetes Mellitus Type 2, Gestational Diabetes, Hyperthyroidism, Hypothyroidism, Obesity, Other Renal/ Medical History: Denies: None, Chronic Kidney Disease, End Stage Renal Disease, Nephrolithiasis, Other Malignancy Medical History: Denies: None, Bone Cancer, Brain Cancer, Breast Cancer, Cervical Cancer, Colorectal Cancer, Leukemia, Liver Cancer, Lung Cancer, Lymphoma, Ovarian Cancer, Pancreatic Cancer, Renal (Kidney) Cancer, Skin Cancer, Other GI Medical History: Denies: None, Cirrhosis, Crohn's Disease, Diverticulitis, Gastroesophageal Reflux Disease, Hepatitis, Hiatal Hernia, Peptic Ulcer Disease, Ulcerative Colitis, Other Skin Medical History: Denies: None, Eczema, Psoriasis, Other Psychiatric Medical History: Reports: Substance Abuse Traumatic Medical History: Denies: None, Gunshot Wound, Pneumothorax, Stab Wound, Traumatic Brain Injury, Other Hematology: Denies: None, Anemia, Hemophilia, Sickle Cell Disease, Bleeding Tendencies, Heparin Induced Thrombocytopenia, Neutropenia, Other Infectious Medical History: Denies: None, Clostridium Difficile, Hepatitis B, Hepatitis C, HIV, Methicillin-Resistant Staph Aureus, Vancomycin-Resistant Enterococci, Other Past Surgical History Past Surgical History: Reports: Herniorrhaphy Social History Smoking Status: Never Smoker Frequency of Alcohol Use: Social Hx Recreational Drug Use: Yes Drugs: Marijuana, Methadone Hx Prescription Drug Abuse: No - Advance Directive Resuscitation Status: Full Code Family History Family History: None Parental Family History Reviewed: No Children Family History Reviewed: NA Sibling(s) Family History Reviewed.: NA Medication/Allergy Home Medications: No Home Medications 10/29/19 Allergies/Adverse Reactions: No Known Allergies Allergy (Unverified 10/04/17 13:20) Review of Systems Constitutional: PRESENT: fatigue, weakness, weight loss Eyes: ABSENT: as per HPI, visual disturbances, other Ears: ABSENT: as per HPI, hearing changes, other Nose, Mouth, and Throat: PRESENT: as per HPI Breasts: ABSENT: as per HPI, other Cardiovascular: ABSENT: as per HPI, chest pain, dyspnea on exertion, edema, orthropnea, palpitations, other Respiratory: ABSENT: as per HPI, cough, dyspnea, hemoptysis, sputum, other Gastrointestinal: ABSENT: as per HPI, abdominal pain, bloating, coffee ground emesis, constipation, diarrhea, dysphagia, heartburn, hematemesis, hematochezia, melena, nausea, vomiting, other Genitourinary: ABSENT: as per HPI, difficulty urinating, dysuria, hematuria, nocturia, other Integumentary: ABSENT: as per HPI, diaphoresis, erythema, lesions, pruritus, rash, wounds, other Neurological: ABSENT: as per HPI, abnormal gait, abnormal movements, abnormal speech, confusion, convulsions, dizziness, focal weakness, frequent falls, lack of coordination, memory loss, numbness, paresthesias, restless legs, syncope, tingling, tremor(s), vertigo, weakness, other Psychiatric: ABSENT: as per HPI, anxiety, depression, hallucinations, homidical ideation, suicidal ideation, other Endocrine: ABSENT: as per HPI, cold intolerance, flushing, heat intolerance, menstrual abnormalities, polydipsia, polyphagia, polyuria, other Hematologic/Lymphatic: ABSENT: as per HPI, easy bleeding, easy bruising, lymphadenopathy, other Allergic/Immunologic: ABSENT: as per HPI, seasonal rhinorrhea, other Physical Exam Vital Signs: Temp Pulse Resp BP Pulse Ox 98.1 F 104 H 16 135/65 H 97 10/31/19 13:10 10/31/19 13:10 10/31/19 13:10 10/31/19 13:10 10/31/19 13:10 General appearance: PRESENT: mild distress Head exam: PRESENT: normocephalic, other - 5cm draining abscess posterior neck iwth 4cm surrounding cellulitis Eye exam: PRESENT: conjunctival injection Ear exam: PRESENT: normal external ear exam Mouth exam: PRESENT: moist Teeth exam: PRESENT: poor dentation Neck exam: PRESENT: full ROM Respiratory exam: PRESENT: clear to auscultation steve Cardiovascular exam: PRESENT: RRR Vascular exam: PRESENT: normal capillary refill Breast: PRESENT: Normal GI/Abdominal exam: PRESENT: soft Rectal exam: PRESENT: deferred Extremities exam: PRESENT: full ROM Musculoskeletal exam: PRESENT: full ROM Neurological exam: PRESENT: alert, awake, oriented to person, oriented to place Psychiatric exam: PRESENT: appropriate affect Skin exam: PRESENT: dry Results Laboratory Results: 10/29/19 05:14 10/30/19 13:30 10/28/19 12:05 Blood Blood Culture - Final NO GROWTH IN 5 DAYS 10/28/19 12:00 Blood Blood Culture - Final NO GROWTH IN 5 DAYS Assessment & Plan - Diagnosis (1) Neck abscess Is this a current diagnosis for this admission?: Yes - Plan Summary Plan Summary: impression, posterior neck abscess, prob mrsa plan operative debridement.
== END 2019-10-31 13:55 | disposition home or self-care (01) | DRG 572 ==
LOC: ER 10:36 → EH 15:06 → 4S 17:04
PROVIDERS: ADMIT Surgery; ATTEND Surgery
PROC: 0JB40ZZ Excision of Right Neck Subcutaneous Tissue and Fascia, Open Approach (ICD-10-PCS; 2019-10-28)
PROC: 0JB50ZZ Excision of Left Neck Subcutaneous Tissue and Fascia, Open Approach (ICD-10-PCS; principal; 2019-10-28 16:00)
PROC: 3E0234Z Introduction of Serum, Toxoid and Vaccine into Muscle, Percutaneous Approach (ICD-10-PCS; 2019-10-31)
DX: L02.11 Cutaneous abscess of neck (principal); B95.62 Methicillin resistant Staphylococcus aureus infection as the cause of diseases classified elsewhere; Z23 Encounter for immunization
CPT/HCPCS: 300; 36415; 80048; 80053; 80202; 82565; 85025; 87040; 87070; 87075; 87077; 87186; 87205; 88305; 90686; 94799; 96365; 96375; 99284; J1885; J2250; J2270; J2405; J2704; J3010; J3370; J3480; J3490; J7060; S0028

== ENCOUNTER 2019-11-10 10:20 | Emergency (ER) | payer SELFPAY ==
[2019-11-10 11:11] LABS: ABSOLUTE BASOPHILS # (AUTO) 0.1 10^3/uL (0.0-0.2); ABSOLUTE EOSINOPHILS # (AUTO) 0.1 10^3/uL (0.0-0.6); ABSOLUTE LYMPHOCYTES (AUTO) 1.9 10^3/uL (0.5-4.7); ABSOLUTE MONOCYTES (AUTO) 0.5 10^3/uL (0.1-1.4); ABSOLUTE NEUT (AUTO) 8.1 10^3/uL (1.7-8.2); BASOPHILS % (AUTO) 0.6 % (0-2); EOSINOPHILS % (AUTO) 1.4 % (0-6); HEMATOCRIT 48.5 % (37.9-51.0); HEMOGLOBIN 16.5 g/dL (13.5-17.0); MEAN CORPUSCULAR HEMOGLOBIN 31.1 pg (27.0-33.4); MEAN CORPUSCULAR HGB CONC 34.1 g/dL (32.0-36.0); MEAN CORPUSCULAR VOLUME 91 fl (80-97); MONOCYTES % (AUTO) 4.3 % (3-13); PLATELET COUNT 397 10^3/uL (150-450); RED BLOOD COUNT 5.31 10^6/uL (4.35-5.55); RED CELL DISTRIBUTION WIDTH 13.2 % (11.5-14.0); SEGMENTED NEUTROPHILS % (AUTO) 75.7 % (42-78); TOTAL CELLS COUNTED % (AUTO) 100 %; WHITE BLOOD COUNT 10.7 10^3/uL (4.0-10.5)
--- NOTE | 2019-11-10 11:24 | EKG REPORT ---
SEVERITY:- NORMAL ECG - SINUS RHYTHM : Confirmed by: Ronald West MD 10-Nov-2019 11:23:16
[2019-11-10 11:36] LABS: ALBUMIN 4.2 g/dL (3.5-5.0); ALKALINE PHOSPHATASE 73 U/L (38-126); ANION GAP 9 (5-19); ASPARTATE AMINO TRANSFERASE 23 U/L (17-59); BILIRUBIN,TOTAL 0.5 mg/dL (0.2-1.3); BLOOD UREA NITROGEN 16 mg/dL (7-20); CALCIUM 9.8 mg/dL (8.4-10.2); CARBON DIOXIDE 30 mmol/L (22-30); CHLORIDE 102 mmol/L (98-107); CREATINE KINASE 84 U/L (55-170); GLUCOSE 122 mg/dL (75-110); POTASSIUM 4.2 mmol/L (3.6-5.0); TOTAL PROTEIN 7.6 g/dL (6.3-8.2)
[2019-11-10 11:52] LABS: CREATINE KINASE MB 0.83 ng/mL (<4.55)
[2019-11-10 11:53] LABS: TROPONIN I < 0.012 ng/mL
--- NOTE | 2019-11-10 14:32 | ER Document Report ---
ED Syncope and Near Syncope - General Chief Complaint: Syncope Stated Complaint: SYNCOPAL EPISODE Time Seen by Provider: 11/10/19 14:31 TRAVEL OUTSIDE OF THE [place] IN LAST 30 DAYS: No - HPI Notes: 39-year-old male to the emergency department with complaints of an episode of syncope that occurred just prior to arrival. He states that he was standing to get fully dressed when he acutely felt lightheaded and passed out. He states that he had his head on the top of heater. He states that he had positive loss of consciousness. He is not sure if he lost consciousness when he hit his head or before he hit his head. He was just recently discharged from the hospital on October 28 after he had an excision of a large neck abscess. Dr. Castro perform this surgery and he will see Dr. Castro on Wednesday of this upcoming week. He was seen this past week and placed on Bactrim for concern for possible infected incision site. Patient denies any fevers, chills, nausea, vomiting, chest pain, shortness of breath. He states that he was on oxycodone for his pain from his surgery and states that he continues to have pain. He has not been taking anything for his symptoms of pain. Denies any back pain, extremity weakness, numbness tingling. Patient also admits that he has not had anything to eat since last night. - Related Data Allergies/Adverse Reactions: No Known Allergies Allergy (Unverified 10/04/17 13:20) Home Medications: Bactrim abx Past Medical History - General Information source: Patient - Social History Smoking Status: Never Smoker Frequency of alcohol use: None Drug Abuse: Marijuana Lives with: Family Family History: None Patient has suicidal ideation: No Patient has homicidal ideation: No - Past Medical History Cardiac Medical History: Denies: Hx Atrial Fibrillation, Hx Congestive Heart Failure, Hx Coronary Artery Disease, Hx DVT, Hx Heart Attack, Hx Hypercholesterolemia, Hx Hypertension, Hx Peripheral Vascular Disease, Hx Pulmonary Embolism, Hx Heart Murmur Pulmonary Medical History: Denies: Hx Asthma, Hx Bronchitis, Hx COPD, Hx Pneumonia, Hx Intubation, Hx Respiratory Failure, Hx Sleep Apnea, Hx Tuberculosis Neurological Medical History: Denies: Hx Migraine, Hx Seizures Endocrine Medical History: Denies: Hx Diabetes Mellitus Type 1, Hx Diabetes Mellitus Type 2, Hx Hyperthyroidism, Hx Hypothyroidism Renal/ Medical History: Denies: Hx End Stage Renal Disease, Hx Peritoneal Dialysis Malignancy Medical History: Denies Hx Bone Cancer, Denies Hx Brain Cancer, Denie s Hx Colorectal Cancer, Denies Hx Leukemia, Denies Hx Liver Cancer, Denies Hx Lung Cancer, Denies Hx Lymphoma, Denies Hx Pancreatic Cancer, Denies Hx Renal (Kidney) Cancer, Denies Hx Skin Cancer GI Medical History: Denies: Hx Cirrhosis, Hx Crohn's Disease, Hx Diverticulitis, Hx Gastroesophageal Reflux Disease, Hx Hepatitis, Hx Hiatal Hernia, Hx Ulcerative Colitis Skin Medical History: Denies Hx Eczema, Denies Hx Psoriasis Traumatic Medical History: Denies: Hx Gunshot Wound, Hx Pneumothorax, Hx Traumatic Brain Injury Infectious Medical History: Denies: Hx C-Diff, Hx Hepatitis, Hx HIV, Hx MRSA, Hx VRE Past Surgical History: Reports: Hx Herniorrhaphy - Immunizations Immunizations up to date: Yes Review of Systems - Review of Systems Constitutional: denies: Chills, Fever EENT: No symptoms reported Cardiovascular: Syncope. denies: Chest pain, Palpitations, Heart racing, Orthopnea, Dyspnea, Dizziness, Lightheaded Respiratory: denies: Cough, Short of breath Gastrointestinal: denies: Abdominal pain, Diarrhea, Nausea, Vomiting Skin: Other - Wound to the back of the neck where abscess with excised with pain Hematologic/Lymphatic: No symptoms reported Neurological/Psychological: Lost consciousness, Headaches. denies: Numbness, Tingling -: Yes All other systems reviewed and negative Physical Exam - Vital signs Vitals: Resp 14 11/10/19 10:29 Selected Entries 11/10/19 11/10/19 13:01 14:00 Temperature 97.6 F Heart Rate ( 66 Monitors) Respiratory 13 Rate Blood Pressure 115/72 Blood Pressure 86 Mean O2 Sat by Pulse 99 Oximetry Interpretation: Normal - General General appearance: Appears well, Alert In distress: None Notes: Standing up in room holding urinalno acute distress - HEENT Head: Normocephalic, Other - To the anterior right scalp there is a mild contusion with no crepitus or step-off. There is no abrasion or evidence for laceration. Eyes: Normal Conjunctiva: Normal Pupils: PERRL Ears: Normal External canal: Normal Tympanic membrane: Normal Hearing loss: Left Sinus: Normal Nasal: Normal Mouth/Lips: Normal Mucous membranes: Normal Pharynx: Normal. No: Retropharyngeal abscess Neck: Other - There is a large open incision where neck abscess was excised. The dressing to the wound is not clean and rather dirty. Removal of the dressing illustrates better visualization of the area that was excised. There is granulomatous tissue and no tim foul purulent drainage. mild erythema to the surrounding skin. No streaking lymphangitis. mildly TTP over the area where surgery was performed. - Respiratory Respiratory status: No respiratory distress Chest status: Nontender Breath sounds: Normal. No: Rales, Rhonchi, Wheezing Chest palpation: Normal - Cardiovascular Rhythm: Regular Heart sounds: Normal auscultation Murmur: No - Abdominal Inspection: Normal Distension: No distension Bowel sounds: Normal Tenderness: Nontender. No: Tender, McBurney's point, Greene's sign, Guarding, Rebound Organomegaly: No organomegaly - Back Back: Normal, Nontender. No: CVA tenderness - Extremities General upper extremity: Normal inspection, Nontender, Normal color, Normal ROM, Normal temperature General lower extremity: Normal inspection, Nontender, Normal color, Normal ROM, Normal temperature, Normal weight bearing. No: Derian's sign - Neurological Neuro grossly intact: Yes Cognition: Normal Orientation: AAOx4 [place] Coma Scale Eye Opening: Spontaneous [place] Coma Scale Verbal: Oriented [place] Coma Scale Motor: Obeys Commands [place] Coma Scale Total: 15 Speech: Normal Cranial nerves: Normal Cerebellar coordination: Normal Motor strength normal: LUE, RUE, LLE, RLE Additional motor exam normals: Equal admin prog coord. No: Pronator drift Sensory: Normal - Psychological Associated symptoms: Normal affect, Normal mood - Skin Skin Temperature: Warm Skin Moisture: Dry Skin Color: Normal Course - Re-evaluation Re-evalutation: 11/10/19 16:45 Patient has done well here in the emergency department today. Lab work is reassuring as well as head CT. We have cleansed and redressed his wound. I have encouraged him to continue to take his Bactrim. He has not had great pain control so we will send home with number 6 tablet of Orrick. Patient was able to ambulate about the emergency department without any difficulty or more feelings of lightheadedness. He is not orthostatic. Impression: Syncope likely vasovagal. Wound check. Patient has done well in the emergency department. We will give him information for follow-up outpatient with primary care physician. He has an appointment with his surgeon Dr. Castro on this upcoming Wednesday. His wound from surgery looks stable. I have encouraged him to complete his Bactrim without fail. Patient agrees with the plan. - Vital Signs Vital signs: Temp Pulse Resp BP Pulse Ox 97.6 F 93 13 114/72 100 11/10/19 13:01 11/10/19 10:32 11/10/19 15:19 11/10/19 15:19 11/10/19 15:19 - Laboratory Result Diagrams: 11/10/19 10:53 11/10/19 10:53 Laboratory results interpreted by me: 11/10/19 11/10/19 10:53 10:53 WBC 10.7 H Glucose 122 H - Diagnostic Test Radiology reviewed: Image reviewed, Reports reviewed - EKG Interpretation by Me Additional EKG results interpreted by me: 11/10/19 Rate: 85, rhythm: Sinus, interpretation: No STEMI, no ST changes. No LVH. Normal axis. No prior for comparison Discharge - Discharge Clinical Impression: Wound check, abscess Syncope Qualifiers: Syncope type: vasovagal syncope Qualified Code(s): R55 - Syncope and collapse Condition: Stable Disposition: HOME, SELF-CARE Instructions: Syncopal Episode ([facility]) Additional Instructions: Return immediately if you have any worsening symptoms such as another episode of passing out, chest pain, shortness of breath, any other concerning symptoms. Follow-up with primary care clinic given to you today. Follow-up with Dr. Castro without fail. Complete your antibiotics. Prescriptions: Hydrocodone/Acetaminophen [Orrick 5-325 mg Tablet] 1 tab PO Q8H #6 tablet Referrals: [facility] [Provider Group] - Follow up in 1 week [facility] [Provider Group] - Follow up in 1 week
[2019-11-10] MEDS ORDERED: NORMAL SALINE 1000 ML 1,000 ML IV ONE (14:42)
[2019-11-10] MEDS ORDERED: OXYCODONE-ACETAMINOPHEN 5-325 MG TABLET PO ONE (14:43)
--- NOTE | 2019-11-10 15:23 | RADIOLOGY REPORT (SQ) ---
EXAM DESCRIPTION: CT HEAD WITHOUT COMPLETED DATE/TIME: 11/10/2019 3:00 pm REASON FOR STUDY: syncope, hit head on heater COMPARISON: None. TECHNIQUE: Axial images acquired through the brain without intravenous contrast. Images reviewed wi th bone, brain and subdural windows. Additional sagittal and coronal reconstructions were generated. Images stored on PACS. All CT scanners at this facility use dose modulation, iterative reconstruction, and/or weight based d osing when appropriate to reduce radiation dose to as low as reasonably achievable (ALARA). [facility]: Dose Right [facility]: CareDose [facility]: Dose Right [facility]: Teradose 4D [facility]: Candescent SoftBase RADIATION DOSE: CT Rad equipment meets quality standard of care and radiation dose reduction techniq ues were employed. CTDIvol: 53.2 mGy. DLP: 1124 mGy-cm. LIMITATIONS: None. FINDINGS: There is no acute intracranial hemorrhage, vascular territorial infarct extra-axial collec tion, mass effect or midline shift. There is no effacement of the cerebral sulci or basal subarachno id cisterns. The freire-white matter differentiation is preserved. The caliber the ventricles is conc ordant with the degree of sulcation. There is a soft tissue defect in the right posterior aspect of the neck at the level of C1. There i s no associated calvarial fracture. The orbits and globes are intact. The paranasal sinuses and the mastoid air cells are clear. IMPRESSION: 1. No acute intracranial abnormality. 2. Soft tissue defect in the right posterior aspect of the neck at the level of C1. There is no ass ociated calvarial fracture. EVIDENCE OF ACUTE STROKE: NO. COMMENT: Quality ID # [id number]: Final reports with documentation of one or more dose reduction techniques (e.g., Automated exposure control, adjustment of the mA and/or kV according to patient size, use of iterative reconstruction technique) TECHNICAL DOCUMENTATION: JOB ID: [id number] [employer]- All Rights Reserved Reading location - IP/workstation name: [email or web address]
[2019-11-10 15:42] LABS: APPEARANCE,URINE CLEAR; BILIRUBIN,URINE NEGATIVE (NEGATIVE); COLOR,URINE YELLOW; GLUCOSE, URINE NEGATIVE (NEGATIVE); KETONES,URINE NEGATIVE (NEGATIVE); LEUKOCYTE ESTERASE,URINE NEGATIVE (NEGATIVE); NITRITE,URINE NEGATIVE (NEGATIVE); PROTEIN,URINE NEGATIVE (NEGATIVE); URINE SPECIFIC GRAVITY 1.011; UROBILINOGEN,URINE NEGATIVE mg/dL (<2.0)
[2019-11-10 18:24] VITALS: BP 132/70
== END 2019-11-10 18:05 | disposition home or self-care (01) ==
LOC: ER 10:20
DX: R55 Syncope and collapse (principal); L02.11 Cutaneous abscess of neck; Z98.890 Other specified postprocedural states; Z79.899 Other long term (current) drug therapy
CPT/HCPCS: 93005; 99284; 96360; 36415; 82553; 82550; 85025; 80053; 81001; 84484; 70450; 93010; J7030

== ENCOUNTER 2019-11-11 16:36 | Emergency (ER) | payer SELFPAY | END 2019-11-11 18:10 | disposition left against medical advice (07) | LOC: ER 16:36 | DX: Z53.21 Procedure and treatment not carried out due to patient leaving prior to being seen by health care provider (principal) ==